=== PATIENT | female | born 1975 | race African-American/Black ===

== ENCOUNTER 2018-02-18 20:42 | Emergency (ER) | payer OTHER, SELFPAY ==
[2018-02-18] MEDS ORDERED: Metoclopramide HCl 10 MG/2 ML VIAL ONE (21:02)
[2018-02-18] MEDS ORDERED: diphenhydrAMINE 50 MG/ML VIAL ONE (21:02)
[2018-02-18] MEDS ORDERED: Sodium Chloride 0.9% 1,000 ML ONE (21:02)
== END 2018-02-18 22:20 | disposition home or self-care (01) ==
LOC: NAV ERS 20:42
DX: G43.909 Migraine, unspecified, not intractable, without status migrainosus (principal); I10 Essential (primary) hypertension; D64.9 Anemia, unspecified; E66.9 Obesity, unspecified; Z79.899 Other long term (current) drug therapy
CPT/HCPCS: 96361; 96374; 96375; J1200; J2765; J7050

== ENCOUNTER 2018-05-28 10:55 | Emergency (ER) | payer SELFPAY ==
[2018-05-28] MEDS ORDERED: Ketorolac Tromethamine 30 MG/ML VIAL ONE (11:34)
[2018-05-28] MEDS ORDERED: Prochlorperazine 10 MG/2 ML VIAL ONE (11:34)
[2018-05-28] MEDS ORDERED: Sodium Chloride 0.9% 500 ML ONE (11:34)
== END 2018-05-28 12:27 | disposition home or self-care (01) ==
LOC: NAV ERS 10:55
DX: R51 Headache (principal); I10 Essential (primary) hypertension; I49.9 Cardiac arrhythmia, unspecified; Z79.899 Other long term (current) drug therapy
CPT/HCPCS: 96374; 96375; J0780; J1885; J7050

== ENCOUNTER 2019-03-07 16:42 | Emergency (ER) | payer OTHER, SELFPAY | END 2019-03-07 17:31 | disposition home or self-care (01) | LOC: NAV ERS 16:42 | DX: M54.41 Lumbago with sciatica, right side (principal); I10 Essential (primary) hypertension; D64.9 Anemia, unspecified; G43.909 Migraine, unspecified, not intractable, without status migrainosus; Z79.899 Other long term (current) drug therapy | CPT/HCPCS: 99281 ==